=== PATIENT | male | born 1970 | race Caucasian/White ===

== ENCOUNTER 2019-03-27 01:21 | Emergency (ER) | payer MEDICAID ==
[2019-03-27] MEDS: IBUPROFEN 600 MG TAB PO (02:14)
[2019-03-27] MEDS: DIPHTH/TET/ACEL PERTUSS (ADULT) 0.5 ML VIAL IM* (02:15)
[2019-03-27] MEDS: TETRACAINE 0.5% 4 ML OPH RIGHT EYE (02:17)
[2019-03-27] MEDS: HYDROCODONE/APAP (5/325) TAB PO (02:36)
[2019-03-27] MEDS: ERYTHROMYCIN 1 GM OPH OINT RIGHT EYE (02:44)
== END 2019-03-27 03:41 | disposition home or self-care (01) ==
LOC: FTE 01:21
DX: T15.01XA Foreign body in cornea, right eye, initial encounter (principal); X58.XXXA Exposure to other specified factors, initial encounter; Y92.9 Unspecified place or not applicable; Z23 Encounter for immunization
CPT/HCPCS: 65222; 90471; 90715; 99283-25